=== PATIENT | male | born 1980 | race Caucasian/White ===

== ENCOUNTER 2023-01-14 19:31 | Emergency (ER) | payer OTHER ==
[2023-01-14] MEDS ORDERED: SODIUM CHLORIDE 0.9% 500 ML INFUS.BAG IV ONE ×2 (19:58→21:57)
[2023-01-14 20:03] VITALS: BP 124/89; PULSE 80; RESP 18; TEMP 98.2; BMI 31.8
[2023-01-14] MEDS ORDERED: PENICILLIN G BENZATHINE 2,400,000 UNIT/4 ML PFS IM ONE (21:15)
[2023-01-14 21:33] LABS: VENOUS BASE EXCESS 4.3 mmol/L (-2-2); VENOUS O2 SATURATION 93.2 % (70-80); VENOUS PH 7.431 (7.310-7.410)
[2023-01-14 21:35] LABS: BASO % 0.7 % (0-2.0); EOS % 2.7 % (0-4.5); HEMATOCRIT 37.8 % (35.4-49); HEMOGLOBIN 12.3 GM/dL (11.7-16.9); LYMPH % 21.9 % (8-40); MCH 25.8 pg (25.7-33.7); MCHC 32.7 g/dl (32.0-35.9); MEAN CELL VOLUME 78.9 fl (80-96); MONO % 12.6 % (3.8-10.2); NEUT % 62.1 % (42.8-82.8); PLATELET COUNT 178 10^3/uL (134-434); RBC 4.79 M/mm3 (4.00-5.60); RDW 18.4 % (11.9-15.9); URINE APPEARANCE CLEAR; URINE BILIRUBIN NEGATIVE (NEGATIVE); URINE COLOR YELLOW; URINE GLUCOSE (UA) 3+ (NEGATIVE); URINE KETONE NEGATIVE (NEGATIVE); URINE LEUK ESTERASE NEGATIVE (NEGATIVE); URINE NITRITE NEGATIVE (NEGATIVE); URINE PROTEIN NEGATIVE (NEGATIVE); URINE UROBILINOGEN 0.2 mg/dL (0.2-1.0); WHITE BLOOD COUNT 5.6 K/mm3 (4.0-10.0)
[2023-01-14 21:55] LABS: POTASSIUM 5.1 mmol/L (3.5-5.1)
[2023-01-14 21:58] LABS: ALBUMIN 3.2 g/dl (3.4-5.0); BLOOD UREA NITROGEN 11.1 mg/dL (7-18); CALCIUM 8.9 mg/dL (8.5-10.1)
[2023-01-14 22:01] LABS: CREATININE 1.3 mg/dL (0.55-1.3)
[2023-01-14 22:03] LABS: BILIRUBIN,TOTAL 0.7 mg/dL (0.2-1); TOT PROT 8.9 g/dl (6.4-8.2)
[2023-01-14] MEDS ORDERED: metFORMIN HCL 500 MG TABLET (FP) PO ONE (22:09)
== END 2023-01-14 22:34 | disposition home or self-care (01) ==
LOC: JER 19:31
PROC: 3E0233Z Introduction of Anti-inflammatory into Muscle, Percutaneous Approach (ICD-10-PCS; principal; 2023-01-14)
DX: R73.9 Hyperglycemia, unspecified (principal); A53.9 Syphilis, unspecified
CPT/HCPCS: 36415; 80053; 81003; 82010; 82803; 82962; 83735; 85025; 87077; 87086; 93005; 93010; 99284-25